=== PATIENT | female | born 1985 ===

== ENCOUNTER 2017-04-18 09:48 | Emergency (ER) | payer SELFPAY ==
[2017-04-18 09:59] VITALS: BP 126/81; PULSE 78; RESP 18; TEMP 98.4; O2SAT 100
--- NOTE | 2017-04-18 10:32 | C.PDOC ---
History Of Present Illness 31 y/o female presents to the ER complaining of lower sacroiliac pain which began today. Patient states that she did not take any medications for her pain.Patient denies any trauma and heavy lifting. Time Seen by Provider: 04/18/17 10:27 Chief Complaint (Nursing): Back Pain History Per: Patient History/Exam Limitations: no limitations Onset/Duration Of Symptoms: Hrs Current Symptoms Are (Timing): Still Present Severity: Moderate Past Medical History Reviewed: Historical Data, Nursing Documentation, Vital Signs Vital Signs: Last Vital Signs Temp 98.4 F 04/18/17 09:56 Pulse 78 04/18/17 09:56 Resp 18 04/18/17 09:56 BP 126/81 04/18/17 09:56 Pulse Ox 100 04/18/17 10:32 - Medical History PMH: HTN Surgical History: No Surg Hx Family History: States: No Known Family Hx - Social History Hx Alcohol Use: No Hx Substance Use: No - Immunization History Hx Tetanus Toxoid Vaccination: No Hx Influenza Vaccination: No Hx Pneumococcal Vaccination: No Review Of Systems Except As Marked, All Systems Reviewed And Found Negative. Musculoskeletal: Positive for: Other (lower sacroiliac pain) Neurological: Negative for: Weakness, Numbness Physical Exam - Physical Exam Appears: Non-toxic, No Acute Distress Skin: Normal Color, Warm Head: Atraumatic, Normacephalic Eye(s): bilateral: Normal Inspection, PERRL Nose: Normal Oral Mucosa: Moist Neck: Supple Chest: Symmetrical Cardiovascular: Rhythm Regular Respiratory: Normal Breath Sounds, No Accessory Muscle Use Back: Other (mild tenderness of bilateral sacroiliac area) Neurological/Psych: Oriented x3, Normal Speech, Normal Cognition, Normal Motor, Normal Sensation ED Course And Treatment O2 Sat by Pulse Oximetry: 100 (RA) Pulse Ox Interpretation: Normal Progress Note: motrin, ice pack to lower back Reevaluation Time: 10:31 Reassessment Condition: Improved Medical Decision Making Medical Decision Making: Plan: --Motrin 600 mg PO lumbosacral strain/sprain no trauma not preg defer radiology with informed consent. Disposition Doctor Will See Patient In The: Office Counseled Patient/Family Regarding: Studies Performed, Diagnosis - Disposition Referrals: [facility] [Outside] [facility] [employer] [facility] [Outside] Disposition: HOME/ ROUTINE Disposition Time: 10:32 Condition: GOOD Additional Instructions: [place] 1/2 hora por hora, nada caliente no jose a michelle caliente Ibuprofeno 400-600 mg cada 6 horas shawn necessario Sigue en [facility] (gratis) shawn necessario. Instructions: Thoracic Back Strain (ED) Forms: [employer] (Greenlandic) Print Language: FRISIAN - Clinical Impression Clinical Impression: Low back strain - Scribe Statement The provider has reviewed the documentation as recorded by the Mahamedibe Nuno Ruby Provider Attestation: All medical record entries made by the Scribe were at my direction and personally dictated by me. I have reviewed the chart and agree that the record accurately reflects my personal performance of the history, physical exam, medical decision making, and the department course for this patient. I have also personally directed, reviewed, and agree with the discharge instructions and disposition.
== END 2017-04-18 10:57 | disposition home or self-care (01) ==
LOC: C.ER 09:48
DX: S39.012A Strain of muscle, fascia and tendon of lower back, initial encounter (principal); X58.XXXA Exposure to other specified factors, initial encounter; Y92.9 Unspecified place or not applicable